=== PATIENT | male | born 1995 | race Two or more races ===

== ENCOUNTER 2024-11-28 23:46 | Emergency (ER) | payer BC, OTHER ==
[~2024-11-28] VITALS: Ht 177.8 cm; Wt 96.0 kg
--- NOTE | 2024-11-28 23:55 | ED.PDOC ---
GI ASSESSMENT HPI Comments HPI: Poor Historian. 29-year-old male presents to emergency depart for one day history of epigastric abdominal pain intermittent nonradiating. Started at 4:00 a.m. this morning. Denies any sick contacts. Patient has associated nausea and vomiting episode nonbilious nonbloody. Patient states that the pain returned again is more severe. 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 Patient decided to come here for further evaluation. Vitals: temperature of 97.8F, pulse of 83, respiratory rate of 16, blood pressure of 141/88, SpO2 of 100%RA Past Medical History: Denies any Past Surgical History: Denies any REVIEW OF SYSTEMS: CONSTITUTIONAL: Denies acute: fever, diaphoresis, chills, generalized weakness. HEAD: Denies acute: headache, photophobia Eyes: Denies acute: Double vision, vision loss, eye pain, eye discharge. EARS: Denies acute: tinnitus, hearing loss, ear discharge, ear pain, THROAT: Denies acute: sore throat, swelling, difficulty swallowing , pain with swallowing, change in voice. NECK: Denies acute: neck pain, neck swelling, stiff neck. HEART: Denies acute : chest pain, palpitations, LUNGS: Denies acute: SOB, wheezing, cough, hemoptysis ABDOMEN: Denies acute: diarrhea, melena , hematemesis, hematochezia SKIN: Denies acute: rash, redness, lesions, itchiness. EXTREMITIES: Denies acute: calf pain, numbness, tingling, weakness, denies pain in extremity. Denies acute: Low back pain. Neuro: Denies acute: focal neurological deficit, motor or sensory focal neurological deficit, tremors, seizure like activity, confusion, dizziness, change in mental status, loss of bowel or bladder function, cauda equina like symptoms. : Denies acute: dysuria, hematuria, flank pain, increase in urinary frequency. PSYCH: Denies acute: hallucination, suicidal ideation, homicidal ideation. PHYSICAL EXAM: General: ----[id number]----acute distress, awake and alert. Head: normocephalic, atraumatic. Neck: supple, trachea is midline, no swelling. Throat: Normal phonation. Eyes:, no erythema, no purulent discharge, no proptosis, no icterus. Heart: regular rate, regular rhythm, no significant murmur appreciated. Lungs: no apparent respiratory distress, Able to speak in full sentences. No wheezing, no rhonchi, no crackles. No stridors Clear to auscultation bilaterally. Abdomen: Epigastric tender to palpation, non distended, soft, no guarding, no rebound, + bowel sounds. Neuro: Awake, Alert, oriented to name, self, situation, follows commands GCS=15. Speech is normal. Skin: no petechia, no purpura, no cyanosis, non-pale, not jaundice. Lower extremities: --no - Pitting edema no deformity, no focal swelling, no calf TTP. Makes eye contact. moves all four extremities. Face: no apparent facial droop. Ambulating in the ED independently. ED COURSE: Time Seen by MD: 23:50 Reviewed Notes: Nurses Notes, Medications, Allergies Allergies: Coded Allergies: No Known Drug Allergy (Verified Allergy, Unknown, 11/29/24) Home Meds Active Scripts Ondansetron Odt 4MG Tab (ZOFRAN PO) 4 Mg Tb, 4 MG PO Q8HPRN PRN for 3 Days, #9 TAB ODT TAB-DISSOLVE IN MOUTH, THEN SWALLOW Prov:FREDRICK RAI DO 11/29/24 Information Source: Patient Was a procedure done? Was a procedure done?: No GI differential Dx Differential Diagnosis: Other (DDX include but not limited to diverticulitis, colitis, gastroenteritis, acute abdomen, SBO, enteritis, constipation, volvulus, appendicitis, Gallbladder disease, choledocolithiasis, ascending cholangitis, pa ncreatitis, intraAbdominal mass/neoplasm, hepatitis, UTI, pylonephritis, kidney stone, aneurysm, dissection, Inflammatory bowel disease, gastroparesis, ischemic bowel.) X-Ray, Labs, Meds, VS Vital Signs Date Time Temp Pulse Resp B/P (MAP) Pulse Ox O2 Delivery O2 Flow Rate FiO2 11/29/24 00:47 138/86 11/29/24 00:01 97.8 83 16 141/88 (105) 100 97.8 Lab Test 11/28/24 23:59 11/28/24 23:58 Range/Units Urine Color Light-yellow Yellow Urine Clarity Clear Clear Urine pH 6.5 5.0-9.0 Urine Specific [place] 1.020 1.001-1.035 Urine Protein Negative Negative Urine Ketones Negative Negative Urine Blood Negative Negative /uL Urine Nitrite Negative Negative Urine Bilirubin Negative Negative Urine Urobilinogen Normal Negative mg/dL Urine Leukocyte Esterase Negative Negative /uL Urine RBC None seen 0 - 3 /hpf Urine Microscopic WBC < 1 0-3 /HPF Urine Squamous Epithelial Cells Few <5 /hpf Urine Amorphous Crystals Few None Seen /hpf Urine Bacteria None seen None Seen /hpf Urine Glucose Normal Normal mg/dL White Blood Count 8.5 4.4-10.8 10^3/uL Red Blood Count 5.06 4.5-5.90 10^6/uL Hemoglobin 14.8 13.5-17.5 g/dL Hematocrit 43.3 41.0-53.0 % Mean Corpuscular Volume 85.6 80.0-100.0 fL Mean Corpuscular Hemoglobin 29.3 28.0-32.0 pg Mean Corpuscular Hemoglobin Concent 34.2 32.0-36.0 g/dL Red Cell Distribution Width 13.7 11.8-14.3 % Platelet Count 254 140-450 10^3/uL Mean Platelet Volume 8.2 6.9-10.8 fL Neutrophils (%) (Auto) 44.7 37.0-80.0 % Lymphocytes (%) (Auto) 43.9 10.0-50.0 % Monocytes (%) (Auto) 6.6 0.0-12.0 % Eosinophils (%) (Auto) 4.5 0.0-7.0 % Basophils (%) (Auto) 0.3 0.0-2.0 % Neutrophils # (Auto) 3.8 1.6-8.6 10 ^3/uL Lymphocytes # (Auto) 3.7 0.4-5.4 10 ^3/uL Monocytes # (Auto) 0.6 0-1.3 10 ^3/uL Eosinophils # (Auto) 0.4 0-0.8 10 ^3/uL Basophils # (Auto) 0 0-0.2 10 ^3/uL Nucleated Red Blood Cells 0.2 % Sodium Level 141 136-145 mmol/L Potassium Level 3.5 3.5-5.1 mmol/L Chloride Level 104 98-107 mmol/L Carbon Dioxide Level 28 20-31 mmol/L Anion Gap 9 5-15 Blood Urea Nitrogen 12 9-23 mg/dL Creatinine 1.00 0.700-1.30 mg/dL Glomerular Filtration Rate Calc 104 >90 mL/min BUN/Creatinine Ratio 12.0 10.0-20.0 Serum Glucose 172 H 74-106 mg/dL Lactic Acid Level 1.8 0.4-2.0 mmol/L Calcium Level 9.4 8.7-10.4 mg/dL Total Bilirubin 0.8 0.2-1.0 mg/dL Aspartate Amino Transferase (AST) 24 13-40 U/L Alanine Aminotransferase (ALT) 46 H 7-40 U/L Alkaline Phosphatase 108 46-116 U/L Total Protein 7.6 5.7-8.2 g/dL Albumin 4.9 H 3.2-4.8 g/dL Lipase 57 H 12-53 U/L Current Medications Medications (Trade) Dose Ordered Sig/Yanci Route Start Time Stop Time Status Last Admin Sodium Chloride 1,000 ml @ 1,000 mls/hr Q1H ONCE IV 11/29/24 00:00 11/29/24 00:59 DC 11/29/24 00:54 Ondansetron HCl (Zofran) 8 mg ONCE ONCE IV 11/29/24 00:00 11/29/24 00:01 DC 11/29/24 00:45 Fentanyl Citrate 100 mcg ONCE ONCE IV 11/29/24 00:00 11/29/24 00:01 DC 11/29/24 00:47 Sucralfate (Carafate Tab) 1 gm ONCE ONCE PO 11/29/24 00:00 11/29/24 00:02 DC 11/29/24 00:44 Pantoprazole Sodium (Protonix Tablet) 40 mg ONCE ONCE PO 11/29/24 00:00 11/29/24 00:02 DC 11/29/24 00:44 Lidocaine HCl (Xylocaine 2% Viscous) 10 ml ONCE ONCE PO 11/29/24 00:00 11/29/24 00:02 DC 11/29/24 00:43 [facility] [id number] [place] [id number] Ph: [phone] DIAGNOSTIC IMAGING Diagnostic Imaging Report : [id number] Signed PATIENT: SHAHIDYORDY WEI ACCT: [id number] UNIT: [id number] : 1995 LOC: ER ROOM / BED: / AGE / SEX: 29 / M ADM STATUS: REG ER SERVICE [id number] ORDERING PHYSICIAN: FREDRICK RAI DO PROCEDURE(s): ABPL - CT AB PEL WO CON-NO ORAL OR IV REASON: abd pain ORDER NUMBER(s): [id number], ACCESSION NUMBER(s): [id number] Exam: CT CT AB PEL WO CON-NO ORAL OR IV History: abd pain Comparison Study: None Technique: Multidetector spiral CT of the abdomen was performed from lung bases to pubic symphysis. Imaging was performed without IV contrast. Axial, coronal and sagittal multiplanar reformats were obtained from the axial data set by the technologist. Radiation Dose : 1. Abdomen/Pelvis: CTDIvol mGy, DLP mGy*cm. Findings: Evaluation of solid organs is limited due to lack of intravenous contrast use. Lung Bases: No abnormality demonstrated. Liver: Liver is normal in size. No focal lesions noted. Gallbladder and Biliary Tree: No abnormality demonstrated. Spleen: No abnormality demonstrated. Pancreas: No abnormality demonstrated. Adrenal Glands: No abnormality demonstrated. Kidneys: No abnormality demonstrated. Bladder: Grossly unremarkable for degree of distention. Bowel: Stomach appears grossly unremarkable. No abnormally dilated or thick- walled loops of large or small bowel noted. Appendix appears unremarkable. Ascites: Absent Lymphadenopathy: No evidence of lymphadenopathy. Abdominal Wall and Mesentery: Unremarkable. Vasculature: Unremarkable. Pelvic Organs: Unremarkable. Musculoskeletal: No bony lesions are fracture. IMPRESSION: No acute abdominal or pelvic findings. Radiation optimization: All CT scans at this facility use at least one of these dose optimization techniques: automated exposure control mA and/or kV adjus tment per patient size (includes targeted exams where dose is matched to clinical indication) or iterative reconstruction. ATED BY: SALO SHAW MD DICTATED DATE/TIME: 11/29/2451 SIGNED BY: SAOL SHAW MD SIGNED DATE/TIME: 11/29/2451 CC: Time of 1ST Reevaluation: 23:50 Reevaluation 1ST: Unchanged Time of 2ND Reevaluation: 01:58 Reevaluation 2ND: Improved Patient Education/Counseling: Diagnosis, Treatment Family Education/Counseling: No Family Present Comments Patient presented with the above HPI.---abdominal pain---workup was initiated. patient was found with the above mentioned diagnosis. the following medications were ordered: please refer to order lists of meds and tests obtained by myself Dr. Rai. Patient ED course and VS have been stabilized. Patient has been reassessed in the ED and remained in a stable condition. Pertinent incidental findings were discussed with the patient and/or family. Patient/family voices understanding and is agreeable with plan. Patient has been observed in the ED adequate length of time to insure improvement/stability. Escalation of care considered: Consideration of escalation to observation or admission Patient was DISCHARGED home in a stable condition. All the reports of any imaging studies that were ordered by myself were reviewed by myself. Departure 1 Departure Time of Disposition: 01:40 Impression: Primary Impression: Epigastric pain Disposition: 01 HOME / SELF CARE / HOMELESS Condition: Stable Additional Instructions: ADDITIONAL INSTRUCTIONS: YOU MUST FOLLOW-UP WITH YOUR PRIMARY CARE/FAMILY DOCTOR IN 1 TO 2 DAYS. IF YOU ARE UNABLE TO SEE YOUR PRIMARY CARE/FAMILY DOCTOR, PLEASE RETURN TO OUR EMERGENCY ROOM FOR RE-ASSESSMENT AND RE-EVALUATION IN 1 TO 2 DAYS. RETURN TO THE EMERGENCY ROOM HERE IN OUR FACILITY OR TO THE NEAREST ER RON IF YOUR SYMPTOMS CHANGE OR WORSEN. CONSULTATIONS: YOU MUST FOLLOW-UP FOR CONSULTATION SOON POSSIBLE WITH: -GASTROENTEROLOGY IN 1-2 DAYS. PLEASE CALL FOR APPOINTMENT. YOU MUST CALL THE CONSULTANTS OFFICE YOURSELF TO MAKE AN APPOINTMENT. YOU MAY NEED TO ARRANGE THAT THROUGH YOUR INSURANCE AND/OR YOUR PRIMARY/FAMILY DOCTOR. IF YOU ARE UNABLE TO SEE THE SENIOR ENVIRONMENTAL SCIENTIST IN 1 TO 2 DAYS, YOU MUST RETURN TO OUR EMERGENCY ROOM (OR ANY OTHER ER OF YOUR CHOICE) FOR RE-ASSESSMENT AND RE- EVALUATION. ADEQUATE FLUID HYDRATION. AVOID FATTY GREASY SPICY FOOD. AVOID CAFFEINATED PRODUCTS. AVOID NSAIDS. BELOW IS A COPY OF YOUR RADIOLOGICAL REPORT FOR FOLLOW UP: [address] [address] Ph: [phone] DIAGNOSTIC IMAGING Diagnostic Imaging Report : [id number] Signed PATIENT: YORDY SHAHID ACCT: [id number] UNIT: [id number] : 1995 LOC: ER ROOM / BED: / AGE / SEX: 29 / M ADM STATUS: REG ER SERVICE [id number] ORDERING PHYSICIAN: FREDRICK RAI DO PROCEDURE(s): ABPL - CT AB PEL WO CON-NO ORAL OR IV REASON: abd pain ORDER NUMBER(s): [id number], ACCESSION NUMBER(s): [id number] Exam: CT CT AB PEL WO CON-NO ORAL OR IV History: abd pain Comparison Study: None Technique: Multidetector spiral CT of the abdomen was performed from lung bases to pubic symphysis. Imaging was performed without IV contrast. Axial, coronal and sagittal multiplanar reformats were obtained from the axial data set by the technologist. Radiation Dose : 1. Abdomen/Pelvis: CTDIvol mGy, DLP mGy*cm. Findings: Evaluation of solid organs is limited due to lack of intravenous contrast use. Lung Bases: No abnormality demonstrated. Liver: Liver is normal in size. No focal lesions noted. Gallbladder and Biliary Tree: No abnormality demonstrated. Spleen: No abnormality demonstrated. Pancreas: No abnormality demonstrated. Adrenal Glands: No abnormality demonstrated. Kidneys: No abnormality demonstrated. Bladder: Grossly unremarkable for degree of distention. Bowel: Stomach appears grossly unremarkable. No abnormally dilated or thick- walled loops of large or small bowel noted. Appendix appears unremarkable. Ascites: Absent Lymphadenopathy: No evidence of lymphadenopathy. Abdominal Wall and Mesentery: Unremarkable. Vasculature: Unremarkable. Pelvic Organs: Unremarkable. Musculoskeletal: No bony lesions are fracture. IMPRESSION: No acute abdominal or pelvic findings. Radiation optimization: All CT scans at this facility use at least one of these dose optimization techniques: automated exposure control mA and/or kV adjustment per patient size (includes targeted exams where dose is matched to clinical indication) or iterative reconstruction. ATED BY: SALO SHAW MD DICTATED DATE/TIME: 11/29/2451 SIGNED BY: SALO SHAW MD SIGNED DATE/TIME: 11/29/2451 CC: e-Prescriptions Ondansetron Odt 4MG Tab (ZOFRAN PO) 4 Mg Tb 4 MG PO Q8HPRN PRN for 3 Days, #9 TAB ODT TAB-DISSOLVE IN MOUTH, THEN SWALLOW Prov: FREDRICK RAI DO 11/29/24 Discharged With: Self Critical Care Note Critical Care Time?: No I personally scribed for FREDRICK RAI DO ([email or web address]) on 11/29/24 at 00:06. Electronically submitted by Garrett Slater ([email or web address]). I personally scribed for FREDRICK RAI DO ([email or web address]) on 11/29/24 at 00:22. Electronically submitted by Garrett Slater ([email or web address]). I personally scribed for FREDRICK RAI DO ([email or web address]) on 11/29/24 at 01:04. Electronically submitted by Garrett Slater ([email or web address]). FREDRICK RAI DO November 28, 2024 23:55
[2024-11-29 00:18] LABS: Urine Bacteria None Seen /hpf (None Seen)
[2024-11-29 00:24] LABS: Basophils # (auto) 0 10 ^3/uL (0-0.2); Basophils % (auto) 0.3 % (0.0-2.0); Eosinophils # (auto) 0.4 10 ^3/uL (0-0.8); Eosinophils % (auto) 4.5 % (0.0-7.0); Hematocrit 43.3 % (41.0-53.0); Hemoglobin 14.8 g/dL (13.5-17.5); Lymphocytes # (auto) 3.7 10 ^3/uL (0.4-5.4); Lymphocytes % (auto) 43.9 % (10.0-50.0); Mean Corpuscular Hemoglobin 29.3 pg (28.0-32.0); Mean Corpuscular Hgb Conc. 34.2 g/dL (32.0-36.0); Mean Corpuscular Volume 85.6 fL (80.0-100.0); Monocytes # (auto) 0.6 10 ^3/uL (0-1.3); Monocytes % (auto) 6.6 % (0.0-12.0); Neutrophils # (auto) 3.8 10 ^3/uL (1.6-8.6); Neutrophils % (auto) 44.7 % (37.0-80.0); Nucleated Red Blood Cells % 0.2 %; Platelet Count (auto) 254 10^3/uL (140-450); Red Blood Cells 5.06 10^6/uL (4.5-5.90); Red Cell Distribution Width 13.7 % (11.8-14.3); White Blood Cell 8.5 10^3/uL (4.4-10.8)
[2024-11-29 00:34] LABS: Alanine Aminotransferase 46 U/L (7-40); Albumin 4.9 g/dL (3.2-4.8); Alkaline Phosphatase 108 U/L (46-116); Anion Gap 9 (5-15); Aspartate Aminotransferase 24 U/L (13-40); Blood Urea Nitrogen 12 mg/dL (9-23); Calcium 9.4 mg/dL (8.7-10.4); Carbon Dioxide 28 mmol/L (20-31); Chloride 104 mmol/L (98-107); Glucose 172 mg/dL (74-106); Lipase 57 U/L (12-53); Potassium 3.5 mmol/L (3.5-5.1); Sodium 141 mmol/L (136-145); Total Protein 7.6 g/dL (5.7-8.2)
[2024-11-29 00:35] LABS: Bilirubin, Total 0.8 mg/dL (0.2-1.0)
[2024-11-29 00:43] LABS: Urine Amorphous Crystal FEW /hpf (None Seen); Urine Blood Negative /uL (Negative); Urine Clarity Clear (Clear); Urine Color Light-Yellow (Yellow); Urine Protein, UAD Negative (Negative); Urine Squamous Epithelial Cell FEW /hpf (<5); Urine Urobilinogen Normal (Negative); Urine WBC < 1 /HPF (0-3); Urine pH 6.5 (5.0-9.0)
[2024-11-29] MEDS: LIDOCAINE VISCOUS 2% 15ML UD PO ONE (00:43)
[2024-11-29] MEDS: PANTOPRAZOLE 40 MG TAB PO ONE (00:44)
[2024-11-29] MEDS: SUCRALFATE 1 GM TAB PO ONE (00:44)
[2024-11-29] MEDS: ONDANSETRON HCL 4 MG/2 ML VIAL IV ONE (00:45)
[2024-11-29] MEDS: fentaNYL CITRATE 100 MCG/2 ML VL IV ONE (00:47)
[2024-11-29] MEDS: SODIUM CHLORIDE 0.9% 1,000 ML IV ONE (00:54)
--- NOTE | 2024-11-29 00:54 | DVH ---
Exam: CT CT AB PEL WO CON-NO ORAL OR IV History: abd pain Comparison Study: None Technique: Multidetector spiral CT of the abdomen was performed from lung bases to pubic symphysis. Imaging was performed without IV contrast. Axial, coronal and sagittal multiplanar reformats were ob tained from the axial data set by the technologist. Radiation Dose : 1. Abdomen/Pelvis: CTDIvol mGy, DLP mGy*cm. Findings: Evaluation of solid organs is limited due to lack of intravenous contrast use. Lung Bases: No abnormality demonstrated. Liver: Liver is normal in size. No focal lesions noted. Gallbladder and Biliary Tree: No abnormality demonstrated. Spleen: No abnormality demonstrated. Pancreas: No abnormality demonstrated. Adrenal Glands: No abnormality demonstrated. Kidneys: No abnormality demonstrated. Bladder: Grossly unremarkable for degree of distention. Bowel: Stomach appears grossly unremarkable. No abnormally dilated or thick-walled loops of large or small bowel noted. Appendix appears unremarkable. Ascites: Absent Lymphadenopathy: No evidence of lymphadenopathy. Abdominal Wall and Mesentery: Unremarkable. Vasculature: Unremarkable. Pelvic Organs: Unremarkable. Musculoskeletal: No bony lesions are fracture. IMPRESSION: No acute abdominal or pelvic findings. Radiation optimization: All CT scans at this facility use at least one of these dose optimization klele hniques: automated exposure control mA and/or kV adjustment per patient size (includes targeted exam s where dose is matched to clinical indication) or iterative reconstruction.
[2024-11-29 00:55] VITALS: TEMP 98.2
[2024-11-29] MEDS ORDERED: ZOFR4T PO (01:41)
[2024-11-29 02:05] VITALS: PULSE 78; RESP 16; O2SAT 99
[2024-11-29 02:55] VITALS: BP 137/86; PULSE 83; RESP 17; O2SAT 100
== END 2024-11-29 03:10 | disposition home or self-care (01) ==
LOC: ER 23:46 → EEVIPCON 23:46 → ER 11-29 03:03
DX: R10.13 Epigastric pain (principal); R11.2 Nausea with vomiting, unspecified; Z79.899 Other long term (current) drug therapy
CPT/HCPCS: 36415; 74176; 80053; 81001; 83605; 83690; 85025; 96361; 96374; 96375; 99285; J2405; J3010; J7030

== ENCOUNTER → 2025-01-02 | Outpatient (CLI) | payer BC ==
[~2025-01-02] MED LIST: ZOFR4T PO
[2025-01-02 12:24] LABS: Hematocrit 45.7 % (41.0-53.0); Hemoglobin 15.8 g/dL (13.5-17.5); Mean Corpuscular Hemoglobin 29.5 pg (28.0-32.0); Mean Corpuscular Volume 85.4 fL (80.0-100.0); Nucleated Red Blood Cells % 0.1 %
[2025-01-02 12:33] LABS: Urine Protein, UAD Negative (Negative)
[2025-01-02 12:53] LABS: Iron 105.0 ug/dL (65-175)
[2025-01-02 12:56] LABS: Prostate Specific Antigen 0.53 ng/mL (0.0-4.0); Total Iron Binding Capacity 338.0 ug/dL (250-425)
[2025-01-02 12:57] LABS: Alanine Aminotransferase 39 U/L (7-40); Alkaline Phosphatase 98 U/L (46-116); Anion Gap 8 (5-15); Calcium 10.3 mg/dL (8.7-10.4); Carbon Dioxide 27 mmol/L (20-31); Chloride 105 mmol/L (98-107); Glucose 103 mg/dL (74-106); Magnesium 2.2 mg/dL (1.6-2.6); Potassium 3.9 mmol/L (3.5-5.1); Sodium 140 mmol/L (136-145); Total Protein 8.0 g/dL (5.7-8.2)
[2025-01-02 12:58] LABS: Albumin 5.2 g/dL (3.2-4.8); Bilirubin, Total 1.2 mg/dL (0.2-1.0); Cholesterol 309 mg/dL (< 200); HDL Cholesterol 39 mg/dL (40-59); Triglycerides 284 mg/dL (< 150)
[2025-01-02 13:00] LABS: Free T4 (Free Thyroxine) 1.32 ng/dL (0.89-1.76)
[2025-01-02 13:01] LABS: Free T3 3.5 pg/mL (2.3-4.2)
[2025-01-02 13:06] LABS: BUN/Creatinine Ratio 16.3 (10.0-20.0); Blood Urea Nitrogen 16 mg/dL (9-23)
[2025-01-02 13:15] LABS: Uric Acid 6.5 mg/dL (3.7-9.2)
== END | disposition home or self-care (01) ==
LOC: LAB 11:52
PROVIDERS: ATTEND Family Medicine
DX: Z00.00 Encounter for general adult medical examination without abnormal findings (principal); Z76.89 Persons encountering health services in other specified circumstances; Z71.3 Dietary counseling and surveillance; Z68.25 Body mass index [BMI] 25.0-25.9, adult
CPT/HCPCS: 36415; 80053; 80061; 81001; 82306; 83013; 83036; 83540; 83550; 83735; 84153; 84403; 84439; 84443; 84480; 84481; 84550; 85025; 87086

== ENCOUNTER 2025-03-07 07:58 | Outpatient (CLI) | payer BC ==
--- NOTE | 2025-03-07 13:15 | DVH ---
CLINICAL INFORMATION: Unspecified abdominal pain. TECHNIQUE: 5.5 mCi of Choletec were administered intravenously. Images of the upper abdomen were ob tained at 1 minute intervals up to a total time of 30 minutes. COMPARISON: CT dated 11/28/2024. FINDINGS: There is prompt gallbladder visualization. There is no evidence of acute cholecystitis. N o definite excretion of radiopharmaceutical activity into the small bowel on the initial images obtai whitney up to 30 minutes or on images at 60 minutes. Delayed images obtained at 4 hours demonstrate acti vity within the small bowel. IMPRESSION: 1. No scintigraphic evidence of acute cholecystitis. 2. Delayed excretion of activity into the small bowel, may be seen with functional gallbladder disord er in the appropriate clinical setting.
== END 2025-03-07 17:00 | disposition home or self-care (01) ==
LOC: XYW 07:58
PROVIDERS: ATTEND Family Medicine
DX: K80.20 Calculus of gallbladder without cholecystitis without obstruction (principal); R10.9 Unspecified abdominal pain
CPT/HCPCS: 78226; A9537

== ENCOUNTER 2025-04-11 10:52 | Day surgery (SDC) | payer BC ==
[2025-04-09 11:56] LABS: Hematocrit 44.5 % (41.0-53.0); Hemoglobin 15.4 g/dL (13.5-17.5); Mean Corpuscular Hemoglobin 29.1 pg (28.0-32.0); Mean Corpuscular Volume 84.2 fL (80.0-100.0); Nucleated Red Blood Cells % 0.1 %
[2025-04-09 11:59] LABS: Urine Protein, UAD Negative (Negative)
[2025-04-09 12:15] LABS: INR 1.03 (0.9-1.15); Partial Thromboplastin Time 31.9 SEC (24.5-34.5); Prothrombin Time 10.9 sec (9.3-11.8)
[2025-04-09 12:18] LABS: Alanine Aminotransferase 33 U/L (7-40); Alkaline Phosphatase 101 U/L (46-116); Anion Gap 9 (5-15); BUN/Creatinine Ratio 10.0 (10.0-20.0); Bilirubin, Total 0.9 mg/dL (0.2-1.0); Calcium 9.7 mg/dL (8.7-10.4); Carbon Dioxide 29 mmol/L (20-31); Chloride 104 mmol/L (98-107); Potassium 4.1 mmol/L (3.5-5.1); Sodium 142 mmol/L (136-145); Total Protein 7.8 g/dL (5.7-8.2)
[2025-04-09 12:20] LABS: Albumin 4.8 g/dL (3.2-4.8); Blood Urea Nitrogen 9 mg/dL (9-23); Glucose 109 mg/dL (74-106)
[~2025-04-11] VITALS: Ht 180.3 cm; Wt 92.1 kg
[~2025-04-11 10:52] MED LIST changes: +GLYCOPYRROLATE 0.2 MG/ML 1ML VIAL ONE; +KETOROLAC TROMETH 30 MG/ML 1ML VIAL ONE; +LIDOCAINE 2% (LOCAL ANESTH.) PF 5ml SDV ONE; +ONDANSETRON HCL 4 MG/2 ML VIAL ONE; +PROPOFOL 10 MG/ML 20 ML IV ONE; +ROCURONIUM 10MG/ML 10ML VIAL IV ONE; +SUGAMMADEX 200mg/2ml Vial (100MG/ML) IV ONE; +fentaNYL CITRATE 100 MCG/2 ML VL ONE
[2025-04-11] MEDS ORDERED: KETAMINE 50mg/ML 1ml syringe IM ONE (10:53)
[2025-04-11] MEDS: GABAPENTIN 300 MG CAP PO ONE (13:41)
[2025-04-11] MEDS: CELECOXIB 100 MG CAP PO ONE (13:41)
[2025-04-11] MEDS: ACETAMINOPHEN IV 1000 MG/100ML (10MG/ML) IV ONE (13:41)
[2025-04-11] MEDS ORDERED: LIDOCAINE 2%HCL (LOCAL ANESTH.) INJ 10ml MDV ONE (13:46)
[2025-04-11] MEDS ORDERED: ACETAMINOPHEN IV 1000 MG/100ML (10MG/ML) IV ONE (14:00)
[2025-04-11] MEDS ORDERED: ESMOLOL HCL 10 ML IV ONE (14:15)
[2025-04-11] MEDS ORDERED: BUPIVACAINE 0.25% INJ 50ML VIAL ONE (14:45)
[2025-04-11 15:05] VITALS: PULSE 68; RESP 19; TEMP 97.6; O2SAT 95
[2025-04-11] MEDS ORDERED: HYDROmorphone HCL 2 MG/ML VL/or syr IV PRN (15:15)
[2025-04-11] MEDS ORDERED: FLUMAZENIL 0.1 MG/ML INJ 10ML MDV IV PRN (15:15)
[2025-04-11] MEDS ORDERED: NALOXONE HCL 0.4 MG/ML VIAL IV PRN (15:15)
[2025-04-11] MEDS ORDERED: hydrALAZINE HCL 20 MG/ML VL IV PRN (15:15)
[2025-04-11] MEDS ORDERED: ONDANSETRON HCL 4 MG/2 ML VIAL IV PRN (15:15)
[2025-04-11] MEDS ORDERED: fentaNYL CITRATE 100 MCG/2 ML VL IV PRN (15:15)
[2025-04-11 16:15] VITALS: BP 117/79; PULSE 91; RESP 16; O2SAT 97
--- NOTE | 2025-04-12 22:57 | DVHOP2 ---
Operative Report - 2 Report Details Date: 04/11/25 Preop Diagnosis: Symptomatic cholelithiasis Postop Diagnosis: Symptomatic cholelithiasis Surgeon: Abelino Hicks MD Anesthesiologist: Nash Thomas CRNA Anesthesia: General Implant: None Consent: The patient was informed of the risks and benefits of the procedure. These include but are not limited to complications of anesthesia, postoperative infection, incomplete relief of symptoms, recurrence of symptoms, damage to blood vessels, nerves and tendons, deep venous thrombosis, pulmonary embolism and possible need for repeat surgery in the future. Estimated Blood Loss: 5ml Findings: Normal appearing gallbladder with minimal omentum adhesions to it. Indications for Surgery: Symptomatic gallstones Name of Procedure Performed Laparoscopic cholecystectomy Procedure Details Procedure Details: Upon arrival to the operating room the patient was transferred to the operating table and placed in the supine position with arms extended. General endotracheal anesthesia was induced. Time-out was observed. Patient was prepped and draped in the standard sterile surgical fashion with chlorhexidine. I then made a infraumbilical curvilinear incision and carried that dissection down to fascia, once at the fascia I grasped the umbilical stalk with Phuong clamp. I then proceeded to walk the Phuong clamp to the base of the umbilical stalk and once at the base I proceeded to gain entry into the peritoneal cavity utilizing Avani technique. I then placed a fascial retention stitch in [id number] fashion with 0 Vicryl. I then introduced the Avani cannula and insufflated the peritoneal cavity to 15 mmHg with toleration. I then inserted a 30 degree 10 mm camera into the peritoneal cavity and surveyed the entry site no injuries. Patient was then placed in the reverse Trendelenburg [id number] position. I then placed 3 additional 5 mm trocars under direct vision at the epigastric area, right midclavicular subcostal area, and right flank area. I then directed my attention to liver and gallbladder. Gallbladder appeared normal with thin omental adhesions to it. Gallbladder was then grasped at the fundus and retracted cephalad and towards the right shoulder. Thin omental adhesions were lysed both bluntly and with cautery. I then placed a 2nd grasper at the infundibulum and retracted laterally. At this point Calot triangle was exposed. I then incised the peritoneum on either side of the base of the gallbladder and extended towards the liver. I then proceeded to fully skeletonize loss triangle and was able to identify 2 structures entering the gallbladder. These 2 structures were fully skeletonized and they were the cystic artery and cystic duct. Cystic artery was then double clipped proximally and 1 distal with 5 mm clips. The cystic duct was then milked for any stones, non felt. The cystic duct was then clipped with 3 proximal 5 mm clips and 1 distal. Both the artery and the duct were transected. I then dissected the gallbladder off of the liver bed with cautery. I had some bile and stone spillage from a tear in the gallbladder wall. Once the gallbladder was fully off of the liver it was placed in the Endo-Catch bag and removed through the infraumbilical incision under direct vision. I then serially irrigated the gallbladder fossa, below the liver and above the liver until all effluent was clear and gallstones suctioned. I then took a look at the gallbladder fossa there were some spots of raw liver oozing, and they were cauterized. Hemostasis achieved. This concluded the intraperitoneal portion of the operation. All 5 mm ports were removed under direct vision, no bleeding coming from the abdominal wall. Peritoneal cavity was allowed to fully desufflate. Fascial retention suture that was previously placed was closed. All counts were complete and cor rect at the end of procedure. All skin sites were closed with 4-0 Monocryl and Dermabond. Marcaine 0.25% was used as local anesthetic. Patient tolerated the procedure well and was transferred to PACU in stable condition. Specimen: Gallbladder and contents Condition Stable Disposition Home ABELINO LAND MD Apr 11, 2025 15:09
== END 2025-04-11 16:30 | disposition home or self-care (01) ==
LOC: SUR 10:52
PROVIDERS: ATTEND Student in an Organized Health Care Education/Training Program
DX: K80.10 Calculus of gallbladder with chronic cholecystitis without obstruction (principal); K82.8 Other specified diseases of gallbladder; Z79.899 Other long term (current) drug therapy
CPT/HCPCS: 36415; 47562; 80053; 81001; 85025; 85610; 85730; 86850; 86900; 86901; 88304; J0694; J1100; J1885; J2003; J2405; J2704; J3010; J0131; J3490